=== PATIENT | female | born 1960 | race Caucasian/White ===

== ENCOUNTER 2022-11-22 21:37 | Outpatient (REF) | payer MEDICAID, SELFPAY ==
[2022-11-22 21:08] LABS: Anion Gap 12.2 mmol/L (3-11); BUN 48 mg/dL (7-18); CO2 25.8 mmol/L (21.0-32.0); Calcium 9.3 mg/dL (8.5-10.1); Chloride 104 mmol/L (98-107); Estimated GFR 17.04 (mL/min/1.73m2); Glucose 113 mg/dL (74-106); Potassium 4.4 mmol/L (3.5-5.1); Sodium 142 mmol/L (136-145)
== END 2022-11-22 21:38 | disposition home or self-care (01) ==
LOC: LBN 21:37
PROVIDERS: PCP Family Medicine; Visit Provider Family Medicine
DX: N18.4 Chronic kidney disease, stage 4 (severe) (principal); I25.10 Atherosclerotic heart disease of native coronary artery without angina pectoris; J44.9 Chronic obstructive pulmonary disease, unspecified
CPT/HCPCS: 80048

== ENCOUNTER 2023-03-10 14:09 | Outpatient (REF) | payer MEDICAID, SELFPAY ==
[2023-03-10 16:35] LABS: Anion Gap 12.2 mmol/L (3-11); BUN 56 mg/dL (7-18); CO2 27.8 mmol/L (21.0-32.0); Calcium 8.2 mg/dL (8.5-10.1); Chloride 99 mmol/L (98-107); Estimated GFR 10.48 (mL/min/1.73m2); Glucose 108 mg/dL (74-106); Sodium 139 mmol/L (136-145)
[2023-03-10 16:42] LABS: CREATININE 4.5 mg/dL (0.55-1.02)
== END 2023-03-10 14:10 | disposition home or self-care (01) ==
LOC: LBN 14:09
PROVIDERS: Internal Medicine Endocrinology, Diabetes & Metabolism; PCP Family Medicine; Visit Provider Family Medicine
DX: N18.4 Chronic kidney disease, stage 4 (severe) (principal); I50.23 Acute on chronic systolic (congestive) heart failure; E83.51 Hypocalcemia
CPT/HCPCS: 80048; 82040

== ENCOUNTER 2023-03-17 20:47 | Outpatient (REF) | payer MEDICAID, SELFPAY ==
[2023-03-17 22:05] LABS: Albumin 2.9 g/dL (3.4-5.0); Anion Gap 6.9 mmol/L (3-11); BUN 50 mg/dL (7-18); CO2 33.1 mmol/L (21.0-32.0); Calcium 9.1 mg/dL (8.5-10.1); Chloride 97 mmol/L (98-107); Estimated GFR 11.38 (mL/min/1.73m2); Glucose 75 mg/dL (74-106); Potassium 3.5 mmol/L (3.5-5.1); Sodium 137 mmol/L (136-145)
[2023-03-17 22:29] LABS: CREATININE 4.2 mg/dL (0.55-1.02)
== END 2023-03-17 20:48 | disposition home or self-care (01) ==
LOC: LBN 20:47
PROVIDERS: PCP Family Medicine; Visit Provider Family Medicine
DX: E83.51 Hypocalcemia (principal); E11.22 Type 2 diabetes mellitus with diabetic chronic kidney disease; E03.9 Hypothyroidism, unspecified; N18.4 Chronic kidney disease, stage 4 (severe)
CPT/HCPCS: 80048; 82040

== ENCOUNTER 2023-03-31 21:28 | Outpatient (REF) | payer MEDICAID, SELFPAY ==
[2023-03-31 21:23] LABS: Albumin 2.9 g/dL (3.4-5.0); BUN 69 mg/dL (7-18); Calcium 7.3 mg/dL (8.5-10.1); Chloride 106 mmol/L (98-107); Estimated GFR 7.68 (mL/min/1.73m2); Glucose 130 mg/dL (74-106); Magnesium 1.6 mg/dL (1.8-2.4); PHOSPHORUS 7.9 mg/dL (2.6-4.7); Potassium 3.3 mmol/L (3.5-5.1); Sodium 144 mmol/L (136-145)
[2023-03-31 21:39] LABS: CREATININE 5.8 mg/dL (0.55-1.02)
== END 2023-03-31 21:29 | disposition home or self-care (01) ==
LOC: LBN 21:28
PROVIDERS: PCP Family Medicine; Visit Provider Family Medicine
DX: E83.51 Hypocalcemia (principal); N18.4 Chronic kidney disease, stage 4 (severe); I50.23 Acute on chronic systolic (congestive) heart failure
CPT/HCPCS: 80048; 82040; 83735; 84100

== ENCOUNTER 2023-04-02 20:58 | Outpatient (REF) | payer MEDICAID, SELFPAY ==
[2023-04-02 21:32] LABS: Abs Immature Grans 0.07 10^3/uL (0.0-0.06); Absolute Basophil Count 0.04 10^3/uL (0.0-0.2); Absolute Eosinophil Count 0.42 10^3/uL (0.0-0.7); Absolute Monocyte Count 1.03 10^3/uL (0.1-0.8); Absolute Neutrophil Count 6.93 10^3/uL (1.2-6.7); Basophils % 0.4; Eosinophils % 4.2; HCT 24.4 % (36.0-46.0); HGB 7.8 g/dL (11.2-15.7); Immature Grans % 0.7; Lymphocytes % 15.9; MCH 27.1 pg (27.0-33.0); MCV 85 fL (80-95); MPV 10.7 fL (8.0-11.0); Monocytes % 10.2; Neutrophils % 68.6; Platelet Count 331 10^3/uL (130-400); RBC 2.88 10^6/uL (3.93-5.22); RDW 15.9 % (11.7-14.6); RDW-SD 48.3 fL; WBC 10.09 10^3/uL (4.4-10.8)
[2023-04-02 21:48] LABS: Diff Comment RBC Morph Reviewed
[2023-04-02 21:52] LABS: Hypochromasia 1+; Polychromasia Present
== END 2023-04-02 20:59 | disposition home or self-care (01) ==
LOC: LBN 20:58
PROVIDERS: PCP Family Medicine; Visit Provider Internal Medicine Nephrology
DX: N18.4 Chronic kidney disease, stage 4 (severe) (principal); I50.23 Acute on chronic systolic (congestive) heart failure
CPT/HCPCS: 85025

== ENCOUNTER 2023-04-09 14:53 | Outpatient (REF) | payer MEDICAID, SELFPAY ==
[2023-04-09 18:24] LABS: Anion Gap 14.3 mmol/L (3-11); BUN 55 mg/dL (7-18); CO2 21.7 mmol/L (21.0-32.0); Calcium 7.4 mg/dL (8.5-10.1); Chloride 105 mmol/L (98-107); Estimated GFR 11.31 (mL/min/1.73m2); Glucose 121 mg/dL (74-106); Potassium 3.2 mmol/L (3.5-5.1); Sodium 141 mmol/L (136-145)
[2023-04-09 18:34] LABS: CREATININE 4.2 mg/dL (0.55-1.02)
== END 2023-04-09 14:54 | disposition home or self-care (01) ==
LOC: NCHCN 14:53
PROVIDERS: PCP Family Medicine; Visit Provider Family Medicine
DX: E83.51 Hypocalcemia (principal); N18.4 Chronic kidney disease, stage 4 (severe); I50.23 Acute on chronic systolic (congestive) heart failure
CPT/HCPCS: 80048; 82040

== ENCOUNTER 2023-04-14 21:41 | Outpatient (REF) | payer MEDICAID, SELFPAY ==
[2023-04-14 21:45] LABS: Albumin 2.9 g/dL (3.4-5.0); Anion Gap 14.5 mmol/L (3-11); BUN 68 mg/dL (7-18); CO2 20.5 mmol/L (21.0-32.0); Calcium 8.2 mg/dL (8.5-10.1); Chloride 105 mmol/L (98-107); Glucose 126 mg/dL (74-106); Sodium 140 mmol/L (136-145)
[2023-04-14 21:54] LABS: CREATININE 4.3 mg/dL (0.55-1.02)
== END 2023-04-14 21:42 | disposition home or self-care (01) ==
LOC: LBN 21:41
PROVIDERS: PCP Family Medicine; Visit Provider Family Medicine
DX: N18.4 Chronic kidney disease, stage 4 (severe) (principal); E83.51 Hypocalcemia; I50.23 Acute on chronic systolic (congestive) heart failure
CPT/HCPCS: 80048; 82040

== ENCOUNTER 2023-04-21 18:01 | Outpatient (REF) | payer MEDICAID, SELFPAY ==
[2023-04-21 18:57] LABS: Albumin 3.1 g/dL (3.4-5.0); Anion Gap 14.2 mmol/L (3-11); BUN 73 mg/dL (7-18); CO2 20.8 mmol/L (21.0-32.0); Calcium 8.9 mg/dL (8.5-10.1); Chloride 104 mmol/L (98-107); Glucose 152 mg/dL (74-106); Sodium 139 mmol/L (136-145)
[2023-04-21 19:15] LABS: CREATININE 4.4 mg/dL (0.55-1.02)
== END 2023-04-21 18:02 | disposition home or self-care (01) ==
LOC: NCHCN 18:01
PROVIDERS: PCP Family Medicine; Visit Provider Internal Medicine Endocrinology, Diabetes & Metabolism
DX: N18.4 Chronic kidney disease, stage 4 (severe) (principal); E83.51 Hypocalcemia; I45.81 Long QT syndrome; I50.23 Acute on chronic systolic (congestive) heart failure
CPT/HCPCS: 80048; 82040

== ENCOUNTER 2023-05-28 15:47 | Outpatient (REF) | payer MEDICAID, SELFPAY ==
[2023-05-28 15:25] LABS: Albumin 2.6 g/dL (3.4-5.0); Anion Gap 10.2 mmol/L (3-11); BUN 58 mg/dL (7-18); CO2 29.8 mmol/L (21.0-32.0); Chloride 99 mmol/L (98-107); Estimated GFR 11.31 (mL/min/1.73m2); Glucose 191 mg/dL (74-106); Magnesium 1.7 mg/dL (1.8-2.4); PHOSPHORUS 7.6 mg/dL (2.6-4.7); Potassium 3.5 mmol/L (3.5-5.1); Sodium 139 mmol/L (136-145)
[2023-05-28 15:47] LABS: CREATININE 4.2 mg/dL (0.55-1.02)
== END 2023-05-28 15:48 | disposition home or self-care (01) ==
LOC: LBN 15:47
PROVIDERS: PCP Family Medicine; Visit Provider Family Medicine
DX: N18.4 Chronic kidney disease, stage 4 (severe) (principal); E83.51 Hypocalcemia; I50.23 Acute on chronic systolic (congestive) heart failure
CPT/HCPCS: 80069; 83735

== ENCOUNTER 2023-06-04 15:39 | Outpatient (REF) | payer MEDICAID, SELFPAY ==
[2023-06-04 16:58] LABS: Anion Gap 11.1 mmol/L (3-11); BUN 74 mg/dL (7-18); CO2 29.9 mmol/L (21.0-32.0); Calcium 9.7 mg/dL (8.5-10.1); Chloride 99 mmol/L (98-107); Estimated GFR 11.99 (mL/min/1.73m2); Glucose 238 mg/dL (74-106); Magnesium 2.1 mg/dL (1.8-2.4); PHOSPHORUS 6.7 mg/dL (2.6-4.7); Potassium 3.5 mmol/L (3.5-5.1); Sodium 140 mmol/L (136-145)
== END 2023-06-04 15:40 | disposition home or self-care (01) ==
LOC: LBN 15:39
PROVIDERS: PCP Family Medicine; Visit Provider Family Medicine
DX: N18.4 Chronic kidney disease, stage 4 (severe) (principal); E83.51 Hypocalcemia; I50.23 Acute on chronic systolic (congestive) heart failure; J44.9 Chronic obstructive pulmonary disease, unspecified
CPT/HCPCS: 80069; 83735

== ENCOUNTER 2023-06-09 16:02 | Outpatient (REF) | payer MEDICAID, SELFPAY ==
[2023-06-09 15:53] LABS: Albumin 2.8 g/dL (3.4-5.0); Anion Gap 13.2 mmol/L (3-11); BUN 76 mg/dL (7-18); CO2 25.8 mmol/L (21.0-32.0); Calcium 9.3 mg/dL (8.5-10.1); Chloride 99 mmol/L (98-107); Estimated GFR 12.36 (mL/min/1.73m2); Glucose 152 mg/dL (74-106); PHOSPHORUS 5.8 mg/dL (2.6-4.7); Sodium 138 mmol/L (136-145)
[2023-06-09 16:03] LABS: CREATININE 3.9 mg/dL (0.55-1.02)
== END 2023-06-09 16:03 | disposition home or self-care (01) ==
LOC: LBN 16:02
PROVIDERS: PCP Family Medicine; Visit Provider Family Medicine
DX: J44.9 Chronic obstructive pulmonary disease, unspecified (principal); I50.33 Acute on chronic diastolic (congestive) heart failure; N18.4 Chronic kidney disease, stage 4 (severe); E83.51 Hypocalcemia
CPT/HCPCS: 80069; 83735

== ENCOUNTER 2023-06-23 16:21 | Outpatient (REF) | payer MEDICAID, SELFPAY ==
[2023-06-23 16:45] LABS: Albumin 2.4 g/dL (3.4-5.0); Anion Gap 11.4 mmol/L (3-11); CO2 25.6 mmol/L (21.0-32.0); Chloride 100 mmol/L (98-107); Estimated GFR 12.36 (mL/min/1.73m2); Glucose 222 mg/dL (74-106); Magnesium 1.8 mg/dL (1.8-2.4); Sodium 137 mmol/L (136-145)
[2023-06-23 17:07] LABS: BUN 93 mg/dL (7-18); CREATININE 3.9 mg/dL (0.55-1.02)
== END 2023-06-23 16:22 | disposition home or self-care (01) ==
LOC: LBN 16:21
PROVIDERS: PCP Family Medicine; Visit Provider Family Medicine
DX: N18.4 Chronic kidney disease, stage 4 (severe) (principal); E11.22 Type 2 diabetes mellitus with diabetic chronic kidney disease; I50.23 Acute on chronic systolic (congestive) heart failure; J44.9 Chronic obstructive pulmonary disease, unspecified
CPT/HCPCS: 80069; 83735

== ENCOUNTER 2023-06-30 18:28 | Outpatient (REF) | payer MEDICAID, SELFPAY ==
[2023-06-30 16:01] LABS: Albumin 2.2 g/dL (3.4-5.0); Anion Gap 14.4 mmol/L (3-11); CO2 24.6 mmol/L (21.0-32.0); Chloride 100 mmol/L (98-107); Estimated GFR 11.64 (mL/min/1.73m2); Glucose 244 mg/dL (74-106); Magnesium 1.5 mg/dL (1.8-2.4); PHOSPHORUS 5.7 mg/dL (2.6-4.7); Potassium 3.8 mmol/L (3.5-5.1); Sodium 139 mmol/L (136-145)
[2023-06-30 16:21] LABS: BUN 92 mg/dL (7-18)
[2023-06-30 16:22] LABS: CREATININE 4.1 mg/dL (0.55-1.02)
== END 2023-06-30 18:29 | disposition home or self-care (01) ==
LOC: LBN 18:28
PROVIDERS: PCP Family Medicine; Visit Provider Family Medicine
DX: N18.4 Chronic kidney disease, stage 4 (severe) (principal); E83.51 Hypocalcemia; I50.23 Acute on chronic systolic (congestive) heart failure
CPT/HCPCS: 80069; 83735

== ENCOUNTER 2023-07-07 16:12 | Outpatient (REF) | payer MEDICAID, SELFPAY ==
[2023-07-07 16:18] LABS: Albumin 1.7 g/dL (3.4-5.0); Anion Gap 9.3 mmol/L (3-11); BUN 78 mg/dL (7-18); CO2 29.7 mmol/L (21.0-32.0); Chloride 99 mmol/L (98-107); Estimated GFR 11.99 (mL/min/1.73m2); Glucose 177 mg/dL (74-106); Magnesium 1.3 mg/dL (1.8-2.4); PHOSPHORUS 7.7 mg/dL (2.6-4.7); Potassium 3.7 mmol/L (3.5-5.1); Sodium 138 mmol/L (136-145)
== END 2023-07-07 16:13 | disposition home or self-care (01) ==
LOC: LBN 16:12
PROVIDERS: PCP Family Medicine; Visit Provider Family Medicine
DX: E11.22 Type 2 diabetes mellitus with diabetic chronic kidney disease (principal); I50.23 Acute on chronic systolic (congestive) heart failure; J44.9 Chronic obstructive pulmonary disease, unspecified
CPT/HCPCS: 80069; 83735